=== PATIENT | female | born 1985 | race Caucasian/White ===

== ENCOUNTER 2016-09-25 18:26 | Emergency (ER) | payer OTHER ==
[2016-09-25 19:43] VITALS: BP 133/63
--- NOTE | 2016-09-25 19:51 | UC ---
Respiratory Complaint HPI - History of Current Complaint Chief Complaint: UCRespiratory Stated Complaint: UPPER RESPIRATORY Time Seen by Provider: 09/25/16 19:41 Hx Last Menstrual Period: unknown - Allergies/Home Medications Allergies/Adverse Reactions: Allergies Allergy/AdvReac Type Severity Reaction Status Date / Time Amoxicillin Allergy Severe Hives Verified 09/25/16 19:31 Codeine Allergy Severe breathing Verified 09/25/16 19:31 difficulty Latex Allergy Severe Rash Verified 09/25/16 19:31 Penicillins Allergy Severe hives, Verified 09/25/16 19:31 difficulty breathing Sulfa Drugs Allergy Severe Difficulty Verified 09/25/16 19:31 Breathing Diclofenac [From Voltaren] Allergy Hives Verified 09/25/16 19:31 Oxycodone Allergy Airway Verified 09/25/16 19:31 Obstruction Povidone Iodine Allergy See Comment Verified 09/25/16 19:31 [From Betadine] Levofloxacin [From Levaquin] AdvReac Severe Agitation Verified 09/25/16 19:31 Sumatriptan [From Imitrex] AdvReac Severe worsens Verified 09/25/16 19:31 migraine Fexofenadine [From Carina] AdvReac Headache Verified 09/25/16 19:31 Loratadine [From Claritin] AdvReac Headache Verified 09/25/16 19:31 Montelukast [From Singulair] AdvReac Headache Verified 09/25/16 19:31 NSAIDs AdvReac Headache Verified 09/25/16 19:31 Eggplant Allergy See Comment Uncoded 09/25/16 19:31 [place]el[place] Allergy Difficulty Uncoded 09/25/16 19:31 Breathing lion beans Allergy Unknown Uncoded 09/25/16 19:31 Reaction Details seafood AdvReac Severe Vomiting Uncoded 09/25/16 19:31 PMH/Surg Hx/FS Hx/Imm Hx Endocrine History Of: Reports: Diabetes - diagnosis Denies: Thyroid Disease Cardiovascular History Of: Reports: Cardiac Disorders - murmur, Hypertension Denies: Pacemaker/ICD Respiratory History Of: Reports: Asthma Denies: COPD GI/ History Of: Reports: Ulcer - hx Neurological History Of: Reports: Migraine - Surgical History Surgical History: Yes Surgery Procedure, Year, and Place: wisdom teeth extraction 2004, left wrist repair 2006. 2 endoscopy x2, hysteroscopy 2013; D&C w/ biopsy x 2. tooth extraction-2016 - Family History Known Family History: Positive: Hypertension, Diabetes Negative: Blood Disorder - Social History Alcohol Use: Rare Alcohol Amount: Vodka, wine coolers 2 x per year Substance Use Type: None Smoking Status (MU): Never Smoked Tobacco Household Exposure Type: Cigarettes - Immunization History Most Recent Influenza Vaccination: no Physical Exam Vital Signs: Initial Vital Signs Temp 97.2 F 09/25/16 19:36 Pulse 89 09/25/16 19:36 Resp 22 09/25/16 19:36 BP 133/63 09/25/16 19:36 Pulse Ox 100 09/25/16 19:36 UC Diagnostic Evaluation - Laboratory O2 Sat by Pulse Oximetry: 100
--- NOTE | 2016-09-25 20:03 | UC ---
Respiratory Complaint HPI - HPI Summary HPI Summary: sinus congestion, cough, yellow sputum for several days. Has allergies, so hard to tell when it's allergies or URI. Mother is also sick with sxs that preceded pt's and they live together. Multiple med allergies noted and pt states last time she was given emycin and she tolerated it fine when she took it with food and feels like it has worked the best for her. No fever. - History of Current Complaint Chief Complaint: UCRespiratory Stated Complaint: UPPER RESPIRATORY Time Seen by Provider: 09/25/16 19:41 Hx Obtained From: Patient Hx Last Menstrual Period: unknown, PCOS and mirena, did neg Pg test 1 week ago ?: No Onset/Duration: Gradual Onset, Lasting Days, Still Present Timing: Constant Severity Initially: Moderate Severity Currently: Moderate Pain Intensity: 3 Pain Scale Used: 0-10 Numeric Character: Cough: Productive - yellow Aggravating Factors: Nothing Alleviating Factors: Nothing Associated Signs And Symptoms: Positive: URI, Nasal Congestion, Sinus Discomfort - Risk Factors Pulmonary Embolism Risk Factors: Negative Cardiac Risk Factors: Negative Pseudomonas Risk Factors: Negative Tuberculosis Risk Factors: Negative - Allergies/Home Medications Allergies/Adverse Reactions: Allergies Allergy/AdvReac Type Severity Reaction Status Date / Time Amoxicillin Allergy Severe Hives Verified 09/25/16 19:31 Codeine Allergy Severe breathing Verified 09/25/16 19:31 difficulty Latex Allergy Severe Rash Verified 09/25/16 19:31 Penicillins Allergy Severe hives, Verified 09/25/16 19:31 difficulty breathing Sulfa Drugs Allergy Severe Difficulty Verified 09/25/16 19:31 Breathing Diclofenac [From Voltaren] Allergy Hives Verified 09/25/16 19:31 Oxycodone Allergy Airway Verified 09/25/16 19:31 Obstruction Povidone Iodine Allergy See Comment Verified 09/25/16 19:31 [From Betadine] Levofloxacin [From Levaquin] AdvReac Severe Agitation Verified 09/25/16 19:31 Sumatriptan [From Imitrex] AdvReac Severe worsens Verified 09/25/16 19:31 migraine Fexofenadine [From Carina] AdvReac Headache Verified 09/25/16 19:31 Loratadine [From Claritin] AdvReac Headache Verified 09/25/16 19:31 Montelukast [From Singulair] AdvReac Headache Verified 09/25/16 19:31 NSAIDs AdvReac Headache Verified 09/25/16 19:31 Eggplant Allergy See Comment Uncoded 09/25/16 19:31 [place] Allergy Difficulty Uncoded 09/25/16 19:31 Breathing lion beans Allergy Unknown Uncoded 09/25/16 19:31 Reaction Details seafood AdvReac Severe Vomiting Uncoded 09/25/16 19:31 PMH/Surg Hx/FS Hx/Imm Hx Endocrine History Of: Reports: Diabetes Denies: Thyroid Disease Cardiovascular History Of: Reports: Cardiac Disorders - murmur, Hypertension Denies: Pacemaker/ICD Respiratory History Of: Reports: Asthma Denies: COPD GI/ History Of: Reports: Ulcer Neurological History Of: Reports: Migraine - Surgical History Surgical History: Yes Surgery Procedure, Year, and Place: wisdom teeth extraction 2004, left wrist repair 2005. 2 endoscopy x2, hysteroscopy 2013; D&C w/ biopsy x 2. tooth extraction-2016 - Family History Known Family History: Positive: Hypertension, Diabetes Negative: Blood Disorder - Social History Lives: With Family Alcohol Use: Rare Alcohol Amount: Vodka, wine coolers 2 x per year Substance Use Type: None Smoking Status (MU): Never Smoked Tobacco Household Exposure Type: Cigarettes - Immunization History Most Recent Influenza Vaccination: no Review of Systems Constitutional: Negative Skin: Negative Eyes: Negative ENT: Nasal Discharge, Other - sinus pressure Respiratory: Cough Cardiovascular: Negative Gastrointestinal: Negative Genitourinary: Negative Motor: Negative Neurovascular: Negative Musculoskeletal: Negative Neurological: Negative Psychological: Negative All Other Systems Reviewed And Are Negative: Yes Physical Exam Triage Information Reviewed: Yes Appearance: No Pain Distress, Ill-Appearing, Obese Vital Signs: Initial Vital Signs Temp 97.2 F 09/25/16 19:36 Pulse 89 09/25/16 19:36 Resp 22 09/25/16 19:36 BP 133/63 09/25/16 19:36 Pulse Ox 100 09/25/16 19:36 Vital Signs Reviewed: Yes Eyes: Positive: Conjunctiva Clear ENT: Positive: Hearing grossly normal, Pharyngeal erythema, TMs normal, Tonsillar swelling, Other: - sinus tenderness and turbinate swelling. Negative : Tonsillar exudate Neck: Positive: Supple, Nontender, No Lymphadenopathy Respiratory: Positive: Lungs clear, Normal breath sounds, No respiratory distress Cardiovascular: Positive: RRR, No Murmur, Pulses Normal, Brisk Capillary Refill Musculoskeletal: Positive: Strength Intact, ROM Intact Neurological: Positive: Alert, Muscle Tone Normal Psychological Exam: Normal Skin Exam: Normal UC Diagnostic Evaluation - Laboratory O2 Sat by Pulse Oximetry: 100 Respiratory Course/Dx - Differential Dx/Diagnosis Differential Diagnosis/HQI/PQRI: Bronchitis, Lower Resp Infection, Sinusitis Provider Diagnoses: sinusitis Discharge - Discharge Plan Condition: Stable Disposition: HOME Prescriptions: Erythromycin TAB* 500 mg PO QID #40 tab Patient Education Materials: Sinusitis (ED) Referrals: Marco Young MD [Primary Care Provider] -
== END 2016-09-25 20:24 | disposition home or self-care (01) ==
LOC: UCCORT 18:26
DX: J32.9 Chronic sinusitis, unspecified (principal); E66.9 Obesity, unspecified; Z68.45 Body mass index [BMI] 70 or greater, adult; Z77.22 Contact with and (suspected) exposure to environmental tobacco smoke (acute) (chronic); Z88.0 Allergy status to penicillin; Z88.2 Allergy status to sulfonamides; Z88.5 Allergy status to narcotic agent; Z88.8 Allergy status to other drugs, medicaments and biological substances; Z88.1 Allergy status to other antibiotic agents; Z88.6 Allergy status to analgesic agent; Z91.040 Latex allergy status; Z91.013 Allergy to seafood; Z91.018 Allergy to other foods
CPT/HCPCS: 99212; G0463

== ENCOUNTER 2016-11-03 16:33 | Emergency (ER) | payer OTHER ==
[2016-11-03 16:51] VITALS: BP 122/56
--- NOTE | 2016-11-03 17:19 | UC ---
Lower Extremity/Ankle HPI - HPI Summary HPI Summary: 1) Dropped 2L bottle of soda on R distal foot and toes 3 days ago. Minimal bruising, able to walk, still painful. 2) L ankle pain for the last 5 weeks since she twisted it on stairs while helping injured friend into a house. Reports 3 separate twists in about 30 seconds. Has continued to be painful, mainly on medial aspect. 3) L wrist pain on radial and ulnar aspects starting 5 days ago with lifting up heavy 2L bottle. States there were 5 audible "pops" when she did it. Has seen Dr. Rankin for carpal tunnel syndrome, is planning to do surgery this spring for this. - History of Current Complaint Chief Complaint: UCUpperExtremity Stated Complaint: LEFT THUMB/WRIST/LEFT ANKLE/RIGHT FOOT Time Seen by Provider: 11/03/16 16:58 Hx Obtained From: Patient Hx Last Menstrual Period: unknown, PCOS and mirena, did neg Pg test 1 week ago ?: No Onset/Duration: Gradual Onset, Lasting Weeks Severity Initially: Mild Aggravating Factor(s): Standing, Ambulation Alleviating Factor(s): Rest Able to Bear Weight: Yes - Allergies/Home Medications Allergies/Adverse Reactions: Allergies Allergy/AdvReac Type Severity Reaction Status Date / Time Amoxicillin Allergy Severe Hives Verified 11/03/16 16:51 Codeine Allergy Severe breathing Verified 11/03/16 16:51 difficulty Latex Allergy Severe Rash Verified 11/03/16 16:51 Penicillins Allergy Severe hives, Verified 11/03/16 16:51 difficulty breathing Sulfa Drugs Allergy Severe Difficulty Verified 11/03/16 16:51 Breathing Diclofenac [From Voltaren] Allergy Hives Verified 11/03/16 16:51 Oxycodone Allergy Airway Verified 11/03/16 16:51 Obstruction Povidone Iodine Allergy See Comment Verified 11/03/16 16:51 [From Betadine] Levofloxacin [From Levaquin] AdvReac Severe Agitation Verified 11/03/16 16:51 Sumatriptan [From Imitrex] AdvReac Severe worsens Verified 11/03/16 16:51 migraine Fexofenadine [From Carina] AdvReac Headache Verified 11/03/16 16:51 Loratadine [From Claritin] AdvReac Headache Verified 11/03/16 16:51 Montelukast [From Singulair] AdvReac Headache Verified 11/03/16 16:51 NSAIDs AdvReac Headache Verified 11/03/16 16:51 Eggplant Allergy See Comment Uncoded 11/03/16 16:51 [place] Allergy Difficulty Uncoded 11/03/16 16:51 Breathing lion beans Allergy Unknown Uncoded 11/03/16 16:51 Reaction Details seafood AdvReac Severe Vomiting Uncoded 11/03/16 16:51 PMH/Surg Hx/FS Hx/Imm Hx Endocrine History Of: Reports: Diabetes Denies: Thyroid Disease Cardiovascular History Of: Reports: Cardiac Disorders - murmur, Hypertension Denies: Pacemaker/ICD Respiratory History Of: Reports: Asthma Denies: COPD GI/ History Of: Reports: Ulcer Neurological History Of: Reports: Migraine - Surgical History Surgical History: Yes Surgery Procedure, Year, and Place: wisdom teeth extraction 2004, left wrist repair 2005. 2 endoscopy x2, hysteroscopy 2013; D&C w/ biopsy x 2. tooth extraction-2016 - Family History Known Family History: Positive: Hypertension, Diabetes Negative: Blood Disorder - Social History Alcohol Use: Rare Alcohol Amount: Vodka, wine coolers 2 x per year Substance Use Type: None Smoking Status (MU): Never Smoked Tobacco Household Exposure Type: Cigarettes - Immunization History Most Recent Influenza Vaccination: no Review of Systems Constitutional: Negative Skin: Negative Eyes: Negative ENT: Negative Respiratory: Negative Cardiovascular: Negative Gastrointestinal: Negative Genitourinary: Negative Motor: Negative Neurovascular: Negative Musculoskeletal: Arthralgia, Myalgia Neurological: Negative Psychological: Negative All Other Systems Reviewed And Are Negative: Yes Physical Exam Triage Information Reviewed: Yes Appearance: Well-Appearing, No Pain Distress, Obese Vital Signs: Initial Vital Signs Temp 98.6 F 11/03/16 16:44 Pulse 102 11/03/16 16:44 Resp 18 11/03/16 16:44 BP 122/56 11/03/16 16:44 Pulse Ox 99 11/03/16 16:44 Vital Signs Reviewed: Yes Eye Exam: Normal Eyes: Positive: Conjunctiva Clear ENT Exam: Normal ENT: Positive: Normal ENT inspection, Hearing grossly normal, Pharynx normal, TMs normal Dental Exam: Normal Neck exam: Normal Neck: Positive: Supple, Nontender, No Lymphadenopathy Respiratory Exam: Normal Respiratory: Positive: Chest non-tender, Lungs clear, Normal breath sounds, No respiratory distress, No accessory muscle use Cardiovascular: Positive: No Murmur, Tachycardia Musculoskeletal Exam: Other - no bony tenderness on R foot or L ankle Musculoskeletal: Positive: ROM Intact, Other: - pain over L thumb extensor tendon and L ulnar wrist Neurological Exam: Normal Neurological: Positive: Alert Psychological Exam: Normal Skin Exam: Normal Lower Extremity Course/Dx - Differential Dx/Diagnosis Provider Diagnoses: 1) R foot crush injury. 2) L ankle sprain. 3) L wrist tendon strain Discharge - Discharge Plan Condition: Stable Disposition: HOME Patient Education Materials: Ankle Sprain (ED), Wrist Sprain (ED), Crush Injury (ED) Referrals: Marco Young MD [Primary Care Provider] - Additional Instructions: Please follow up with Dr. Rankin for your wrist. Keep wearing the splint if you have pain. The right foot should gradually feel better on its own without any intervention Please arrange to see a physical therapist about your ongoing ankle pain.
--- NOTE | 2016-11-03 17:44 | RAD ---
Indication: Right Foot injury. 3 views of the right foot demonstrates no definite fracture. Posterior and inferior calcaneal spur is noted. No other bone or joint abnormality noted. IMPRESSION: Inferior and posterior calcaneal spur. No fracture is identified.
--- NOTE | 2016-11-03 17:47 | RAD ---
Left ankle injury. 3 views of left ankle demonstrate soft tissue swelling. Ankle mortise is intact. No fracture is identified. IMPRESSION: Soft tissue swelling without definite evidence of fracture.
== END 2016-11-03 17:48 | disposition home or self-care (01) ==
LOC: UCCORT 16:33
DX: S97.81XA Crushing injury of right foot, initial encounter (principal); S93.402A Sprain of unspecified ligament of left ankle, initial encounter; S66.912A Strain of unspecified muscle, fascia and tendon at wrist and hand level, left hand, initial encounter; W20.8XXA Other cause of strike by thrown, projected or falling object, initial encounter; X50.1XXA Overexertion from prolonged static or awkward postures, initial encounter; Y93.9 Activity, unspecified; Y92.9 Unspecified place or not applicable; Z77.22 Contact with and (suspected) exposure to environmental tobacco smoke (acute) (chronic); Z88.1 Allergy status to other antibiotic agents; Z88.5 Allergy status to narcotic agent; Z88.6 Allergy status to analgesic agent; Z88.0 Allergy status to penicillin; Z88.2 Allergy status to sulfonamides; Z88.8 Allergy status to other drugs, medicaments and biological substances; E66.9 Obesity, unspecified
CPT/HCPCS: 99212; G0463

== ENCOUNTER 2016-11-28 15:07 | Emergency (ER) | payer OTHER ==
[2016-11-28 16:13] VITALS: BP 115/69
--- NOTE | 2016-11-28 16:23 | UC ---
Respiratory Complaint HPI - HPI Summary HPI Summary: COUGH X 5 DAYS + CHEST CONGESTION, NASAL CONGESTION , PND NO FEVER, NO CHILLS - History of Current Complaint Chief Complaint: UCRespiratory Stated Complaint: COUGH/CONGESTION Time Seen by Provider: 11/28/16 16:14 Hx Obtained From: Patient Hx Last Menstrual Period: mirena ?: No Onset/Duration: Gradual Onset, Lasting Days - 5, Still Present Timing: Constant Severity Initially: Moderate Severity Currently: Moderate Character: Cough: Nonproductive Aggravating Factors: Exertion, Deep Breaths Alleviating Factors: Nothing Associated Signs And Symptoms: Positive: Wheezing, URI, Nasal Congestion. Negative: Dyspnea, Fever, Chills, Pleuritic Chest Pain, Hemoptysis, Dizziness, Calf Pain, Calf Swelling, Edema - Allergies/Home Medications Allergies/Adverse Reactions: Allergies Allergy/AdvReac Type Severity Reaction Status Date / Time Amoxicillin Allergy Severe Hives Verified 11/28/16 16:13 Codeine Allergy Severe breathing Verified 11/28/16 16:13 difficulty Latex Allergy Severe Rash Verified 11/28/16 16:13 Penicillins Allergy Severe hives, Verified 11/28/16 16:13 difficulty breathing Sulfa Drugs Allergy Severe Difficulty Verified 11/28/16 16:13 Breathing Diclofenac [From Voltaren] Allergy Hives Verified 11/28/16 16:13 Oxycodone Allergy Airway Verified 11/28/16 16:13 Obstruction Povidone Iodine Allergy See Comment Verified 11/28/16 16:13 [From Betadine] Levofloxacin [From Levaquin] AdvReac Severe Agitation Verified 11/28/16 16:13 Sumatriptan [From Imitrex] AdvReac Severe worsens Verified 11/28/16 16:13 migraine Fexofenadine [From Carina] AdvReac Headache Verified 11/28/16 16:13 Loratadine [From Claritin] AdvReac Headache Verified 11/28/16 16:13 Montelukast [From Singulair] AdvReac Headache Verified 11/28/16 16:13 NSAIDs AdvReac Headache Verified 11/28/16 16:13 Eggplant Allergy See Comment Uncoded 11/28/16 16:13 [place] Allergy Difficulty Uncoded 11/28/16 16:13 Breathing lion beans Allergy Unknown Uncoded 11/28/16 16:13 Reaction Details seafood AdvReac Severe Vomiting Uncoded 11/28/16 16:13 PMH/Surg Hx/FS Hx/Imm Hx Endocrine History Of: Reports: Diabetes Denies: Thyroid Disease Cardiovascular History Of: Reports: Hypertension Denies: Cardiac Disorders, Pacemaker/ICD Respiratory History Of: Reports: Asthma Denies: COPD GI/ History Of: Reports: Ulcer Neurological History Of: Reports: Migraine - Surgical History Surgical History: Yes Surgery Procedure, Year, and Place: wisdom teeth extraction 2004, left wrist repair 2006. 2 endoscopy x2, hysteroscopy 2013; D&C w/ biopsy x 2. tooth extraction-2016 - Family History Known Family History: Positive: Hypertension, Diabetes Negative: Blood Disorder - Social History Alcohol Use: Rare Alcohol Amount: Vodka, wine coolers 2 x per year Substance Use Type: None Smoking Status (MU): Never Smoked Tobacco Household Exposure Type: Cigarettes - Immunization History Most Recent Influenza Vaccination: no Review of Systems Constitutional: Negative Skin: Negative Eyes: Negative ENT: Nasal Discharge Respiratory: Cough Cardiovascular: Negative Gastrointestinal: Negative Neurological: Headache All Other Systems Reviewed And Are Negative: Yes Physical Exam Triage Information Reviewed: Yes Appearance: Obese Vital Signs: Initial Vital Signs Temp 97.7 F 11/28/16 16:09 Pulse 113 11/28/16 16:09 Resp 16 11/28/16 16:09 BP 115/69 11/28/16 16:09 Pulse Ox 98 11/28/16 16:09 Vital Signs Reviewed: Yes Eyes: Positive: Conjunctiva Clear ENT: Positive: Normal ENT inspection, Hearing grossly normal, Pharynx normal Neck: Positive: Supple, Nontender, No Lymphadenopathy Respiratory: Positive: Chest non-tender, Lungs clear, Normal breath sounds Cardiovascular: Positive: No Murmur, Tachycardia Skin Exam: Normal UC Diagnostic Evaluation - Laboratory O2 Sat by Pulse Oximetry: 98 Respiratory Course/Dx - Differential Dx/Diagnosis Provider Diagnoses: VIRAL BRONCHITIS Discharge - Discharge Plan Condition: Stable Disposition: HOME Prescriptions: Benzonatate CAP* [Tessalon 100 MG CAP*] 100 mg PO TID PRN #21 cap PRN Reason: Cough Patient Education Materials: Acute Bronchitis (ED) Referrals: Marco Young MD [Primary Care Provider] - 7 Days Additional Instructions: VIRAL BRONCHITIS NO NEED FOR ANTIBIOTICS CONT. WITH REST, INCREASE FLUID, TAKE TYLENOL NEEDED FOR PAIN OR FEVER
== END 2016-11-28 16:31 | disposition home or self-care (01) ==
LOC: UCCORT 15:07
DX: J20.8 Acute bronchitis due to other specified organisms (principal); E11.9 Type 2 diabetes mellitus without complications; I10 Essential (primary) hypertension; G43.909 Migraine, unspecified, not intractable, without status migrainosus; Z88.1 Allergy status to other antibiotic agents; Z88.6 Allergy status to analgesic agent; Z88.0 Allergy status to penicillin; Z88.2 Allergy status to sulfonamides; Z77.22 Contact with and (suspected) exposure to environmental tobacco smoke (acute) (chronic)
CPT/HCPCS: 99212; G0463

== ENCOUNTER 2016-12-09 17:00 | Emergency (ER) | payer OTHER ==
[2016-12-09 17:49] VITALS: BP 115/49
--- NOTE | 2016-12-09 17:53 | UC ---
Respiratory Complaint HPI - HPI Summary HPI Summary: dry cough and wheezing for the past few weeks. - History of Current Complaint Chief Complaint: UCRespiratory Stated Complaint: RE CHECK COUGH-SEEN 11/27 Time Seen by Provider: 12/09/16 17:22 Hx Obtained From: Patient Hx Last Menstrual Period: 11/2015 ?: No Onset/Duration: Sudden Onset, Lasting Weeks Timing: Constant Severity Initially: Moderate Severity Currently: Moderate Character: Cough: Nonproductive Aggravating Factors: Exertion, Deep Breaths, Recumbent Position Alleviating Factors: Nothing Associated Signs And Symptoms: Positive: Wheezing, URI - Risk Factors Pulmonary Embolism Risk Factors: Negative Cardiac Risk Factors: Negative Pseudomonas Risk Factors: Negative - Allergies/Home Medications Allergies/Adverse Reactions: Allergies Allergy/AdvReac Type Severity Reaction Status Date / Time Amoxicillin Allergy Severe Hives Verified 12/09/16 17:34 Codeine Allergy Severe breathing Verified 12/09/16 17:34 difficulty Latex Allergy Severe Rash Verified 12/09/16 17:34 Penicillins Allergy Severe hives, Verified 12/09/16 17:34 difficulty breathing Sulfa Drugs Allergy Severe Difficulty Verified 12/09/16 17:34 Breathing Diclofenac [From Voltaren] Allergy Hives Verified 12/09/16 17:34 Oxycodone Allergy Airway Verified 12/09/16 17:34 Obstruction Povidone Iodine Allergy See Comment Verified 12/09/16 17:34 [From Betadine] Levofloxacin [From Levaquin] AdvReac Severe Agitation Verified 12/09/16 17:34 Sumatriptan [From Imitrex] AdvReac Severe worsens Verified 12/09/16 17:34 migraine Fexofenadine [From Carina] AdvReac Headache Verified 12/09/16 17:34 Loratadine [From Claritin] AdvReac Headache Verified 12/09/16 17:34 Montelukast [From Singulair] AdvReac Headache Verified 12/09/16 17:34 NSAIDs AdvReac Headache Verified 12/09/16 17:34 Eggplant Allergy See Comment Uncoded 12/09/16 17:34 environmental Allergy Sneezing Uncoded 12/09/16 17:34 [place] Allergy Difficulty Uncoded 12/09/16 17:34 Breathing lion beans Allergy Unknown Uncoded 12/09/16 17:34 Reaction Details seafood AdvReac Severe Vomiting Uncoded 12/09/16 17:34 PMH/Surg Hx/FS Hx/Imm Hx Previously Healthy: Yes Endocrine History Of: Reports: Diabetes Denies: Thyroid Disease Cardiovascular History Of: Reports: Hypertension Denies: Cardiac Disorders, Pacemaker/ICD Respiratory History Of: Reports: Asthma Denies: COPD GI/ History Of: Reports: Ulcer - duodenum Neurological History Of: Reports: Migraine - Surgical History Surgical History: Yes Surgery Procedure, Year, and Place: wisdom teeth extraction 2004, left wrist repair 2006. 2 endoscopy x2, hysteroscopy 2013; D&C w/ biopsy x 2. tooth extraction-2016 - Family History Known Family History: Positive: Hypertension, Diabetes Negative: Blood Disorder - Social History Alcohol Use: Rare Alcohol Amount: Vodka, wine coolers 2 x per year Substance Use Type: None Smoking Status (MU): Never Smoked Tobacco Household Exposure Type: Cigarettes - Immunization History Most Recent Influenza Vaccination: no Review of Systems Constitutional: Negative Skin: Negative Eyes: Negative ENT: Sore Throat Respiratory: Cough Cardiovascular: Negative Gastrointestinal: Negative Genitourinary: Negative Motor: Negative Neurovascular: Negative Musculoskeletal: Negative Neurological: Negative Psychological: Negative All Other Systems Reviewed And Are Negative: Yes Physical Exam Triage Information Reviewed: Yes Appearance: Well-Appearing, Pain Distress, Obese Vital Signs: Initial Vital Signs Temp 97.9 F 12/09/16 17:03 Pulse 115 12/09/16 17:03 Resp 20 12/09/16 17:03 BP 115/49 12/09/16 17:03 Pulse Ox 98 12/09/16 17:03 Vital Signs Reviewed: Yes Eye Exam: Normal Eyes: Positive: Conjunctiva Clear ENT: Positive: Pharyngeal erythema, TMs normal Dental Exam: Normal Neck exam: Normal Neck: Positive: Supple, Nontender, No Lymphadenopathy Respiratory Exam: Normal Respiratory: Positive: Chest non-tender, Lungs clear, Normal breath sounds Cardiovascular Exam: Normal Cardiovascular: Positive: No Murmur, Pulses Normal, Tachycardia Abdominal Exam: Normal Abdomen Description: Positive: Nontender, No Organomegaly, Soft Bowel Sounds: Positive: Present Musculoskeletal Exam: Normal Musculoskeletal: Positive: Strength Intact, ROM Intact, No Edema Neurological Exam: Normal Neurological: Positive: Alert, Muscle Tone Normal Psychological Exam: Normal Skin Exam: Normal UC Diagnostic Evaluation - Laboratory O2 Sat by Pulse Oximetry: 98 Respiratory Course/Dx - Course Course Of Treatment: hx obtained, exam performed, meds reviewed, treated for bronchospasm, patient is on lisinopril, BP is low, but do not have a large enough cuff to get an accurate BP, she is denies any dizzyness, CP, SOB. patient is drinking alot of water, reports 6-7 bottles a day - Differential Dx/Diagnosis Differential Diagnosis/HQI/PQRI: Bronchitis, Laryngitis, Sinusitis Provider Diagnoses: bronchospasm Discharge - Discharge Plan Condition: Stable Disposition: HOME Prescriptions: Benzonatate CAP* [Tessalon 100 MG CAP*] 100 mg PO TID PRN #21 cap PRN Reason: Cough predniSONE TAB* [Deltasone TAB*] 40 mg PO DAILY #14 tab Patient Education Materials: Bronchospasm (ED) Referrals: Marco Young MD [Primary Care Provider] - Additional Instructions: 1. take the medication as prescribed. 2. If cough persists please follow up with Dr Leyva for possible reaction to lisinopril. 3. COntinue increased fluid intake and get plenty of rest.
== END 2016-12-09 17:59 | disposition home or self-care (01) ==
LOC: UCCORT 17:00
DX: J98.01 Acute bronchospasm (principal); E11.9 Type 2 diabetes mellitus without complications; I10 Essential (primary) hypertension; G43.909 Migraine, unspecified, not intractable, without status migrainosus; E66.9 Obesity, unspecified; Z88.6 Allergy status to analgesic agent; Z88.1 Allergy status to other antibiotic agents; Z88.5 Allergy status to narcotic agent; Z88.0 Allergy status to penicillin; Z88.2 Allergy status to sulfonamides; Z90.710 Acquired absence of both cervix and uterus; Z77.22 Contact with and (suspected) exposure to environmental tobacco smoke (acute) (chronic)
CPT/HCPCS: 99212; G0463

== ENCOUNTER 2017-02-22 11:43 | Emergency (ER) | payer OTHER ==
--- NOTE | 2017-02-22 14:24 | UC ---
Lower Extremity/Ankle HPI - HPI Summary HPI Summary: pain in left heel worse in the morning and worse after walking in "flip-flops" has been going on for 1 month - History of Current Complaint Chief Complaint: UCLowerExtremity Stated Complaint: HEEL INJURY Time Seen by Provider: 02/22/17 14:10 Hx Obtained From: Patient Hx Last Menstrual Period: mirana ?: No Onset/Duration: Gradual Onset, Lasting Weeks - 4, Still Present Severity Initially: Moderate Severity Currently: Moderate Pain Intensity: 6 Pain Scale Used: 0-10 Numeric Aggravating Factor(s): Standing, Ambulation Alleviating Factor(s): Nothing Able to Bear Weight: Yes - Allergies/Home Medications Allergies/Adverse Reactions: Allergies Allergy/AdvReac Type Severity Reaction Status Date / Time Amoxicillin Allergy Severe Hives Verified 12/22/16 13:24 Codeine Allergy Severe breathing Verified 12/22/16 13:24 difficulty Latex Allergy Severe Rash Verified 12/22/16 13:24 Penicillins Allergy Severe hives, Verified 12/22/16 13:24 difficulty breathing Sulfa Drugs Allergy Severe Difficulty Verified 12/22/16 13:24 Breathing Diclofenac [From Voltaren] Allergy Hives Verified 12/22/16 13:24 Oxycodone Allergy Airway Verified 12/22/16 13:24 Obstruction Povidone Iodine Allergy See Comment Verified 12/22/16 13:24 [From Betadine] Levofloxacin [From Levaquin] AdvReac Severe Agitation Verified 12/22/16 13:24 Sumatriptan [From Imitrex] AdvReac Severe worsens Verified 12/22/16 13:24 migraine Fexofenadine [From Carina] AdvReac Headache Verified 12/22/16 13:24 Loratadine [From Claritin] AdvReac Headache Verified 12/22/16 13:24 Montelukast [From Singulair] AdvReac Headache Verified 12/22/16 13:24 NSAIDs AdvReac Headache Verified 12/22/16 13:24 Eggplant Allergy See Comment Uncoded 12/22/16 13:24 environmental Allergy Sneezing Uncoded 12/22/16 13:24 Hazelnut Allergy Difficulty Uncoded 12/22/16 13:24 Breathing lion beans Allergy Unknown Uncoded 12/22/16 13:24 Reaction Details seafood AdvReac Severe Vomiting Uncoded 12/22/16 13:24 PMH/Surg Hx/FS Hx/Imm Hx Previously Healthy: No - Chronic pain Cardiovascular History: Hypertension Respiratory History: Asthma - Surgical History Surgical History: Yes Surgery Procedure, Year, and Place: wisdom teeth extraction 2004, left wrist repair 2005. 2 endoscopy x2, hysteroscopy 2013; D&C w/ biopsy x 2. tooth extraction-2016. breast surgery papiloma removal october 2015 - Family History Known Family History: Positive: Hypertension, Diabetes Negative: Blood Disorder - Social History Occupation: Unemployed Lives: With Family Alcohol Use: Rare Alcohol Amount: Vodka, wine coolers 2 x per year Substance Use Type: None Smoking Status (MU): Never Smoked Tobacco Household Exposure Type: Cigarettes - Immunization History Most Recent Influenza Vaccination: no Review of Systems Constitutional: Negative Skin: Negative Eyes: Negative ENT: Negative Respiratory: Negative Cardiovascular: Negative Gastrointestinal: Negative Genitourinary: Negative Motor: Negative Neurovascular: Negative Musculoskeletal: Arthralgia - plantar surface left foot Neurological: Negative Psychological: Negative All Other Systems Reviewed And Are Negative: Yes Physical Exam Triage Information Reviewed: Yes Appearance: Well-Appearing, Well-Nourished, Obese Vital Signs: Initial Vital Signs Temp 97.1 F 02/22/17 12:16 Pulse 94 02/22/17 12:16 Resp 18 02/22/17 12:16 BP 144/73 02/22/17 12:16 Pulse Ox 98 02/22/17 12:16 Eye Exam: Normal Eyes: Positive: Conjunctiva Clear ENT Exam: Normal ENT: Positive: Normal ENT inspection, Hearing grossly normal. Negative: Nasal congestion, Nasal drainage, Trismus, Muffled/hoarse voice Dental Exam: Normal Neck exam: Normal Neck: Positive: Supple, Nontender Respiratory Exam: Normal Respiratory: Positive: Chest non-tender, No respiratory distress, No accessory muscle use Cardiovascular Exam: Normal Cardiovascular: Positive: RRR, Pulses Normal, Brisk Capillary Refill Musculoskeletal Exam: Normal Musculoskeletal: Positive: Strength Intact, ROM Intact, No Edema Neurological Exam: Normal Neurological: Positive: Alert, Muscle Tone Normal Psychological Exam: Normal Skin Exam: Normal Lower Extremity Course/Dx - Course Course Of Treatment: plantar fac. exercises, nsaids, follow with podiatry, shoe inserts - Differential Dx/Diagnosis Differential Diagnosis/HQI/PQRI: Contusion, Sprain, Strain, Tendonitis Provider Diagnoses: L foot plantar facitis Discharge - Discharge Plan Condition: Stable Disposition: HOME Patient Education Materials: Plantar Fasciitis Exercises (GEN), Plantar Fasciitis (ED) Referrals: Jin Purcell DPM [Doctor of Podiatric Medicine] - As Soon As Possible Antonia Boss DPM [Doctor of Podiatric Medicine] - As Soon As Possible Chava Cesar DPM [Doctor of Podiatric Medicine] - As Soon As Possible
[2017-02-22 14:33] VITALS: BP 122/86
== END 2017-02-22 14:39 | disposition home or self-care (01) ==
LOC: UCEAST 11:43
DX: S99.929A Unspecified injury of unspecified foot, initial encounter (principal); Z88.0 Allergy status to penicillin
CPT/HCPCS: 99212; G0463

== ENCOUNTER 2017-02-24 17:21 | Emergency (ER) | payer OTHER ==
[2017-02-24 18:04] VITALS: BP 134/63
--- NOTE | 2017-02-24 19:28 | UC ---
Hand/Wrist HPI - HPI Summary HPI Summary: pt c/o sudden onset of left wrist pain, and swelling. Denies injury. left distal radius - History Of Current Complaint Chief Complaint: UCUpperExtremity Stated Complaint: LEFT WRIST COMPLAINT Time Seen by Provider: 02/24/17 19:04 Hx Obtained From: Patient Hx Last Menstrual Period: unknown, has mirena ?: No Onset/Duration: Sudden Onset, Lasting Days, Still Present Severity Initially: Mild Severity Currently: Mild Character Of Pain: Dull Aggravating Factor(s): Movement, Other - palpation Alleviating: Nothing Associated Signs And Symptoms: Positive: Swelling Related History: Dominant Hand Right - Allergies/Home Medications Allergies/Adverse Reactions: Allergies Allergy/AdvReac Type Severity Reaction Status Date / Time Amoxicillin Allergy Severe Hives Verified 02/24/17 18:04 Codeine Allergy Severe breathing Verified 02/24/17 18:04 difficulty Latex Allergy Severe Rash Verified 02/24/17 18:04 Penicillins Allergy Severe hives, Verified 02/24/17 18:04 difficulty breathing Sulfa Drugs Allergy Severe Difficulty Verified 02/24/17 18:04 Breathing Diclofenac [From Voltaren] Allergy Hives Verified 02/24/17 18:04 Oxycodone Allergy Airway Verified 02/24/17 18:04 Obstruction Povidone Iodine Allergy See Comment Verified 02/24/17 18:04 [From Betadine] Levofloxacin [From Levaquin] AdvReac Severe Agitation Verified 02/24/17 18:04 Sumatriptan [From Imitrex] AdvReac Severe worsens Verified 02/24/17 18:04 migraine Fexofenadine [From Carina] AdvReac Headache Verified 02/24/17 18:04 Loratadine [From Claritin] AdvReac Headache Verified 02/24/17 18:04 Montelukast [From Singulair] AdvReac Headache Verified 02/24/17 18:04 NSAIDs AdvReac Headache Verified 02/24/17 18:04 Eggplant Allergy See Comment Uncoded 02/24/17 18:04 environmental Allergy Sneezing Uncoded 02/24/17 18:04 Hazelnut Allergy Difficulty Uncoded 02/24/17 18:04 Breathing lion beans Allergy Unknown Uncoded 02/24/17 18:04 Reaction Details seafood AdvReac Severe Vomiting Uncoded 02/24/17 18:04 PMH/Surg Hx/FS Hx/Imm Hx Previously Healthy: Yes - Surgical History Surgical History: Yes Surgery Procedure, Year, and Place: wisdom teeth extraction 2004, left wrist repair 2006. 2 endoscopy x2, hysteroscopy 2013; D&C w/ biopsy x 2. tooth extraction-2016. breast surgery papiloma removal october 2015 - Family History Known Family History: Positive: Hypertension, Diabetes Negative: Blood Disorder - Social History Alcohol Use: Rare Alcohol Amount: Vodka, wine coolers 2 x per year Substance Use Type: None Smoking Status (MU): Never Smoked Tobacco Household Exposure Type: Cigarettes - Immunization History Most Recent Influenza Vaccination: no Review of Systems Constitutional: Negative Skin: Negative Eyes: Negative ENT: Negative Respiratory: Negative Cardiovascular: Negative Gastrointestinal: Negative Genitourinary: Negative Motor: Negative Neurovascular: Negative Musculoskeletal: Myalgia - left wrist Neurological: Negative Psychological: Negative All Other Systems Reviewed And Are Negative: Yes Physical Exam Triage Information Reviewed: Yes Appearance: Well-Appearing Vital Signs: Initial Vital Signs Temp 97.5 F 02/24/17 17:47 Pulse 82 02/24/17 17:47 Resp 20 02/24/17 17:47 BP 134/63 02/24/17 17:47 Pulse Ox 100 02/24/17 17:47 Eye Exam: Normal Neck exam: Normal Respiratory Exam: Normal Musculoskeletal Exam: Other Musculoskeletal: Positive: ROM Intact, Other: - small tender soft "lump" left wrist distal radius Neurological Exam: Normal Psychological Exam: Normal Skin Exam: Normal Hand/Wrist Course/Dx - Differential Dx/Diagnosis Differential Diagnosis/HQI/PQRI: Gout, Sprain, Tendonitis Provider Diagnoses: tendonitis. swollen joint left wrist Discharge - Discharge Plan Condition: Stable Disposition: HOME Patient Education Materials: Arthralgia (ED), Swollen Joint (ED) Referrals: Marco Young MD [Primary Care Provider] - Matt Bernard MD [Medical Doctor] -
--- NOTE | 2017-02-24 20:28 | RAD ---
INDICATION: Painful nodules overlying the radial aspect of the left wrist COMPARISON: Left hand radiograph dated December 22, 2016 TECHNIQUE: 4 views left wrist. REPORT: The visualized bones are properly aligned and well corticated. The joint spaces are normal.There is no fracture, dislocation or other focal osseous abnormality. IMPRESSION: Normal radiograph of the left wrist. If the patient's symptoms persist, follow-up imaging is recommended.
== END 2017-02-24 19:41 | disposition home or self-care (01) ==
LOC: UCCORT 17:21
DX: M77.8 Other enthesopathies, not elsewhere classified (principal); M25.432 Effusion, left wrist
CPT/HCPCS: 99212; G0463

== ENCOUNTER 2017-05-25 10:32 | Emergency (ER) | payer OTHER ==
[2017-05-25 11:03] VITALS: BP 113/67
--- NOTE | 2017-05-25 11:21 | UC ---
Throat Pain/Nasal Axel HPI - HPI Summary HPI Summary: sore throat x 4 weeks + nasal congestion , pnd, sinus pain , cough no fever, no chills - History of Current Complaint Chief Complaint: UCRespiratory Stated Complaint: SORE THROAT Time Seen by Provider: 05/25/17 11:09 Hx Obtained From: Patient Hx Last Menstrual Period: unknown Onset/Duration: Gradual Onset, Lasting Weeks - 4, Still Present Severity: Moderate Cough: Nonproductive Associated Signs & Symptoms: Positive: Wheezing, Sinus Discomfort, Nasal Discharge. Negative: Fever, Rash - Allergies/Home Medications Allergies/Adverse Reactions: Allergies Allergy/AdvReac Type Severity Reaction Status Date / Time Amoxicillin Allergy Severe Hives Verified 05/25/17 11:02 Codeine Allergy Severe breathing Verified 05/25/17 11:02 difficulty Latex Allergy Severe Rash Verified 05/25/17 11:02 Penicillins Allergy Severe hives, Verified 05/25/17 11:02 difficulty breathing Sulfa Drugs Allergy Severe Difficulty Verified 05/25/17 11:02 Breathing Diclofenac [From Voltaren] Allergy Hives Verified 05/25/17 11:02 Oxycodone Allergy Airway Verified 05/25/17 11:02 Obstruction Povidone Iodine Allergy See Comment Verified 05/25/17 11:02 [From Betadine] Levofloxacin [From Levaquin] AdvReac Severe Agitation Verified 05/25/17 11:02 Sumatriptan [From Imitrex] AdvReac Severe worsens Verified 05/25/17 11:02 migraine Fexofenadine [From Carina] AdvReac Headache Verified 05/25/17 11:02 Loratadine [From Claritin] AdvReac Headache Verified 05/25/17 11:02 Montelukast [From Singulair] AdvReac Headache Verified 05/25/17 11:02 NSAIDs AdvReac Headache Verified 05/25/17 11:02 Eggplant Allergy See Comment Uncoded 05/25/17 11:02 environmental Allergy Sneezing Uncoded 05/25/17 11:02 [place]el[place] Allergy Difficulty Uncoded 05/25/17 11:02 Breathing lion beans Allergy Unknown Uncoded 05/25/17 11:02 Reaction Details seafood AdvReac Severe Vomiting Uncoded 05/25/17 11:02 PMH/Surg Hx/FS Hx/Imm Hx Cardiovascular History: Hypertension Respiratory History: Asthma GI/ History: Gastroesophageal Reflux - Surgical History Surgical History: Yes Surgery Procedure, Year, and Place: wisdom teeth extraction 2004, left wrist repair 2006. 2 endoscopy x2, hysteroscopy 2013; D&C w/ biopsy x 2. tooth extraction-2016. breast surgery papiloma removal october 2015 - Family History Known Family History: Positive: Hypertension, Diabetes Negative: Blood Disorder - Social History Alcohol Use: Rare Alcohol Amount: Vodka, wine coolers 2 x per year Substance Use Type: None Smoking Status (MU): Never Smoked Tobacco Household Exposure Type: Cigarettes - Immunization History Most Recent Influenza Vaccination: no Review of Systems Constitutional: Negative Skin: Negative Eyes: Negative ENT: Sore Throat, Nasal Discharge, Sinus Congestion, Sinus Pain/Tenderness Respiratory: Cough Cardiovascular: Negative Gastrointestinal: Negative Is Patient Immunocompromised?: No All Other Systems Reviewed And Are Negative: Yes Physical Exam Triage Information Reviewed: Yes Appearance: No Pain Distress, Obese Vital Signs: Initial Vital Signs Temp 98.6 F 05/25/17 10:56 Pulse 94 05/25/17 10:56 Resp 18 05/25/17 10:56 BP 113/67 05/25/17 10:56 Pulse Ox 98 05/25/17 10:56 Vital Signs Reviewed: Yes Eyes: Positive: Conjunctiva Clear ENT: Positive: Normal ENT inspection, Hearing grossly normal, Pharyngeal erythema, Nasal congestion, Nasal drainage, TMs normal. Negative: Tonsillar swelling, Tonsillar exudate Neck: Positive: Supple, Nontender, No Lymphadenopathy Respiratory: Positive: Chest non-tender, Lungs clear, Normal breath sounds Cardiovascular: Positive: RRR, No Murmur, Pulses Normal Skin Exam: Normal Throat Pain/Nasal Course/Dx - Differential Dx/Diagnosis Provider Diagnoses: sinusitis Discharge - Discharge Plan Condition: Stable Disposition: HOME Prescriptions: Azithromycin TAB* [Zithromax TAB (Z-KYLER) 250 mg #6 tabs] 2 tab PO .TODAY, THEN 1 DAILY #1 kyler Patient Education Materials: Sinusitis (ED) Referrals: Marco Young MD [Primary Care Provider] - If Needed Additional Instructions: use Flonase OTC nasal spray daily
== END 2017-05-25 11:40 | disposition home or self-care (01) ==
LOC: UCCORT 10:32
DX: J32.9 Chronic sinusitis, unspecified (principal); I10 Essential (primary) hypertension; Z88.1 Allergy status to other antibiotic agents; Z88.0 Allergy status to penicillin; Z88.2 Allergy status to sulfonamides; Z88.6 Allergy status to analgesic agent; Z88.8 Allergy status to other drugs, medicaments and biological substances; Z91.040 Latex allergy status; Z91.018 Allergy to other foods; Z91.013 Allergy to seafood
CPT/HCPCS: 99212; G0463

== ENCOUNTER 2017-05-31 16:43 | Emergency (ER) | payer OTHER ==
[2017-05-31 17:15] VITALS: BP 133/78
--- NOTE | 2017-05-31 17:47 | UC ---
Respiratory Complaint HPI - HPI Summary HPI Summary: Continued cough and fatigue just finished last dose of antibiotic, no fevers using albuterol 4 times a day - History of Current Complaint Chief Complaint: UCGeneralIllness Stated Complaint: FEVER,SORE THROAT,COUGH Time Seen by Provider: 05/31/17 17:24 Hx Obtained From: Patient Hx Last Menstrual Period: MIRENA ?: No Onset/Duration: Gradual Onset, Lasting Days, Still Present Timing: Constant Severity Initially: Mild Severity Currently: Mild Pain Intensity: 3 Pain Scale Used: 0-10 Numeric Character: Cough: Nonproductive Alleviating Factors: Bronchodilator Associated Signs And Symptoms: Positive: URI, Nasal Congestion - Allergies/Home Medications Allergies/Adverse Reactions: Allergies Allergy/AdvReac Type Severity Reaction Status Date / Time Amoxicillin Allergy Severe Hives Verified 05/31/17 17:18 Codeine Allergy Severe breathing Verified 05/31/17 17:18 difficulty Latex Allergy Severe Rash Verified 05/31/17 17:18 Penicillins Allergy Severe hives, Verified 05/31/17 17:18 difficulty breathing Sulfa Drugs Allergy Severe Difficulty Verified 05/31/17 17:18 Breathing Diclofenac [From Voltaren] Allergy Hives Verified 05/31/17 17:18 Oxycodone Allergy Airway Verified 05/31/17 17:18 Obstruction Povidone Iodine Allergy See Comment Verified 05/31/17 17:18 [From Betadine] Levofloxacin [From Levaquin] AdvReac Severe Agitation Verified 05/31/17 17:18 Sumatriptan [From Imitrex] AdvReac Severe worsens Verified 05/31/17 17:18 migraine Fexofenadine [From Carina] AdvReac Headache Verified 05/31/17 17:18 Loratadine [From Claritin] AdvReac Headache Verified 05/31/17 17:18 Montelukast [From Singulair] AdvReac Headache Verified 05/31/17 17:18 NSAIDs AdvReac Headache Verified 05/31/17 17:18 Eggplant Allergy See Comment Uncoded 05/31/17 17:18 environmental Allergy Sneezing Uncoded 05/31/17 17:18 [place] Allergy Difficulty Uncoded 05/31/17 17:18 Breathing lion beans Allergy Unknown Uncoded 05/31/17 17:18 Reaction Details seafood AdvReac Severe Vomiting Uncoded 05/31/17 17:18 Home Medications: Home Medications Acetaminophen [Acetaminophen Extra Stren] 1,000 mg PO Q6H PRN 05/31/17 [History Confirmed 05/31/17] PMH/Surg Hx/FS Hx/Imm Hx Previously Healthy: No - pcos Cardiovascular History: Hypertension Respiratory History: Asthma GI/ History: Gastroesophageal Reflux Psychological History: Anxiety - Surgical History Surgical History: Yes Surgery Procedure, Year, and Place: wisdom teeth extraction 2004, left wrist repair 2005. 2 endoscopy x2, hysteroscopy 2012; D&C w/ biopsy x 2. tooth extraction-2016. breast surgery papiloma removal october 2015 - Family History Known Family History: Positive: Hypertension, Diabetes Negative: Blood Disorder - Social History Occupation: Disabled - learning job skills at [employer] Lives: With Family Alcohol Use: Rare Alcohol Amount: Vodka, wine coolers 2 x per year Substance Use Type: None Smoking Status (MU): Never Smoked Tobacco Household Exposure Type: Cigarettes - Immunization History Most Recent Influenza Vaccination: no Review of Systems Constitutional: Negative Skin: Negative Eyes: Negative ENT: Sore Throat, Nasal Discharge Respiratory: Cough Cardiovascular: Negative Gastrointestinal: Negative Genitourinary: Negative Motor: Negative Neurovascular: Negative Musculoskeletal: Negative Neurological: Negative Psychological: Negative Is Patient Immunocompromised?: No All Other Systems Reviewed And Are Negative: Yes Physical Exam Triage Information Reviewed: Yes Appearance: Well-Appearing, No Pain Distress, Obese Vital Signs: Initial Vital Signs Temp 97.6 F 05/31/17 17:04 Pulse 96 05/31/17 17:04 Resp 20 05/31/17 17:04 BP 133/78 05/31/17 17:04 Pulse Ox 98 05/31/17 17:04 Vital Signs Reviewed: Yes Eye Exam: Normal Eyes: Positive: Conjunctiva Clear ENT Exam: Normal ENT: Positive: Normal ENT inspection, Hearing grossly normal, Pharynx normal, Nasal congestion, Nasal drainage, TMs normal. Negative: Tonsillar swelling, Tonsillar exudate, Trismus, Muffled/hoarse voice Dental Exam: Normal Neck exam: Normal Neck: Positive: Supple, Nontender, No Lymphadenopathy Respiratory Exam: Normal Respiratory: Positive: Chest non-tender, Lungs clear, Normal breath sounds, No respiratory distress, No accessory muscle use Cardiovascular Exam: Normal Cardiovascular: Positive: RRR, No Murmur, Pulses Normal, Brisk Capillary Refill Musculoskeletal Exam: Normal Musculoskeletal: Positive: Strength Intact, ROM Intact, No Edema Neurological Exam: Normal Neurological: Positive: Alert, Muscle Tone Normal Psychological Exam: Normal Skin Exam: Normal UC Diagnostic Evaluation - Laboratory O2 Sat by Pulse Oximetry: 98 Respiratory Course/Dx - Course Course Of Treatment: continue albuterol, may use tessalon and robitussin for cough, follow with pcp this week prn - Differential Dx/Diagnosis Provider Diagnoses: Bronchospastic cough Discharge - Discharge Plan Condition: Stable Disposition: HOME Prescriptions: Benzonatate CAP* [Tessalon 100 MG CAP*] 100 mg PO TID PRN #30 cap PRN Reason: cough guaiFENesin LIQ* [Robitussin*] 10 ml PO Q4H PRN #240 ml PRN Reason: Cough Patient Education Materials: Acute Cough (ED), Viral Syndrome (ED) Referrals: Marco Young MD [Primary Care Provider] - If Needed
== END 2017-05-31 17:47 | disposition home or self-care (01) ==
LOC: UCCORT 16:43
DX: R05 Cough (principal); J98.01 Acute bronchospasm; I10 Essential (primary) hypertension; Z88.1 Allergy status to other antibiotic agents; Z88.5 Allergy status to narcotic agent; Z91.040 Latex allergy status; Z88.0 Allergy status to penicillin; Z88.2 Allergy status to sulfonamides; Z88.8 Allergy status to other drugs, medicaments and biological substances; Z88.6 Allergy status to analgesic agent; Z91.013 Allergy to seafood; Z91.018 Allergy to other foods
CPT/HCPCS: 87651; 99212; G0463

== ENCOUNTER 2017-07-21 11:01 | Emergency (ER) | payer OTHER ==
--- NOTE | 2017-07-21 11:46 | UC ---
Throat Pain/Nasal Axel HPI - HPI Summary HPI Summary: Pt presents with mother for sinus symptoms and cough. Pt tells me that about 1 week ago she developed sinus pain/pressure/congestion, PND, and a dry cough. She has felt a little more SOB than usual, but attributes this to her asthma in conjunction with her recent symptoms. She has not taken anything OTC because she is allergic to many things and does not have the funds to afford OTC medications. She denies fever, chills, chest pain, abdominal pain, N/V/D/C. 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 - History of Current Complaint Stated Complaint: COUGH SINUS/LEFT FOOT COMPLAINT Time Seen by Provider: 07/21/17 11:46 Hx Obtained From: Patient Hx Last Menstrual Period: MIRENA ?: No Onset/Duration: Gradual Onset Severity: Moderate Pain Intensity: 7 Pain Scale Used: 0-10 Numeric Cough: Nonproductive - Allergies/Home Medications Allergies/Adverse Reactions: Allergies Allergy/AdvReac Type Severity Reaction Status Date / Time Amoxicillin Allergy Severe Hives Verified 07/21/17 11:50 Codeine Allergy Severe breathing Verified 07/21/17 11:50 difficulty Latex Allergy Severe Rash Verified 07/21/17 11:50 Penicillins Allergy Severe hives, Verified 07/21/17 11:50 difficulty breathing Sulfa Drugs Allergy Severe Difficulty Verified 07/21/17 11:50 Breathing Diclofenac [From Voltaren] Allergy Hives Verified 07/21/17 11:50 Oxycodone Allergy Airway Verified 07/21/17 11:50 Obstruction Povidone Iodine Allergy See Comment Verified 07/21/17 11:50 [From Betadine] Levofloxacin [From Levaquin] AdvReac Severe Agitation Verified 07/21/17 11:50 Sumatriptan [From Imitrex] AdvReac Severe worsens Verified 07/21/17 11:50 migraine Fexofenadine [From Carina] AdvReac Headache Verified 07/21/17 11:50 Loratadine [From Claritin] AdvReac Headache Verified 07/21/17 11:50 Montelukast [From Singulair] AdvReac Headache Verified 07/21/17 11:50 NSAIDs AdvReac Headache Verified 07/21/17 11:50 Eggplant Allergy See Comment Uncoded 07/21/17 11:50 environmental Allergy Sneezing Uncoded 07/21/17 11:50 Hazelnut Allergy Difficulty Uncoded 07/21/17 11:50 Breathing lion beans Allergy Unknown Uncoded 07/21/17 11:50 Reaction Details seafood AdvReac Severe Vomiting Uncoded 07/21/17 11:50 PMH/Surg Hx/FS Hx/Imm Hx - Additional Past Medical History Additional PMH: Chronic pain. PCOS. Endocrine History: Diabetes Cardiovascular History: Hypertension Respiratory History: Asthma GI/ History: Gastroesophageal Reflux, Other - IBS Other GI/ History: IBS Psychological History: Anxiety, Depression - Surgical History Surgical History: Yes Surgery Procedure, Year, and Place: wisdom teeth extraction 2004, left wrist repair 2005. 2 endoscopy x2, hysteroscopy 2012; D&C w/ biopsy x 2. tooth extraction-2015. breast surgery papiloma removal october 2015 - Family History Known Family History: Positive: Hypertension, Diabetes Negative: Blood Disorder - Social History Alcohol Use: Rare Alcohol Amount: Vodka, wine coolers 2 x per year Substance Use Type: None Smoking Status (MU): Never Smoked Tobacco Household Exposure Type: Cigarettes - Immunization History Most Recent Influenza Vaccination: no Review of Systems Constitutional: Negative Skin: Negative Eyes: Negative ENT: Sore Throat, Ear Ache, Nasal Discharge, Sinus Congestion, Sinus Pain/ Tenderness Respiratory: Cough Cardiovascular: Negative Gastrointestinal: Negative Genitourinary: Negative Psychological: Negative All Other Systems Reviewed And Are Negative: Yes Physical Exam Triage Information Reviewed: Yes Appearance: Well-Appearing, Obese Vital Signs Reviewed: Yes Eyes: Positive: Conjunctiva Clear. Negative: Conjunctiva Inflamed, Discharge ENT: Positive: Hearing grossly normal, Pharynx normal, Nasal congestion, Nasal drainage, TM bulging - Left ear, TM red, Sinus tenderness. Negative: Pharyngeal erythema, Tonsillar swelling, Tonsillar exudate Neck: Positive: Supple, Nontender, No Lymphadenopathy Respiratory: Positive: Chest non-tender, No respiratory distress, No accessory muscle use, Wheezing - Throughout. Negative: Crackles, Rhonchi Cardiovascular: Positive: RRR, No Murmur, Pulses Normal Musculoskeletal: Positive: Strength Intact - Left foot, ROM Intact - Left foot, No Edema - Left foot, Other: - TTP over plantar left foot. Pain with dorsiflexion and plantar flexion left foot. Neurological: Positive: Alert Psychological: Positive: Age Appropriate Behavior Skin: Negative: rashes Throat Pain/Nasal Course/Dx - Course Course Of Treatment: Otitis media left ear. Sinusitis - Pt says that plain erythromycin is the only antibiotic that she can take without adverse effects and has had good relief in the past. Bronchitis - continue using your at home inhalers. Robitussin at bedtime and tessalon throughout the day. Plantar fasciitis - Referral to orthopedics - Differential Dx/Diagnosis Differential Diagnosis/HQI/PQRI: Influenza, Otitis Media, Pharyngitis, Sinusitis , Tonsillitis, URI Provider Diagnoses: Otitis media left ear. Sinusitis. Bronchitis. plantar fasciitis Discharge - Discharge Plan Condition: Stable Disposition: HOME Prescriptions: Benzonatate CAP* [Tessalon 100 MG CAP*] 100 mg PO TID PRN #30 cap PRN Reason: Cough Erythromycin TAB* 500 mg PO BID #40 tab Guaifenesin [Diabetic Tussin] 5 ml PO BEDTIME PRN #35 ml PRN Reason: Cough Patient Education Materials: Sinusitis (ED), Acute Bronchitis (ED) Referrals: Marco Young MD [Primary Care Provider] - Matt Chao MD [Medical Doctor] - If Needed Additional Instructions: If you develop a fever, SOB, chest pain, new or worsening symptoms - please call your PCP or go to the ED. Your blood pressure was high at todays visit. Please see your primary provider within 4 weeks for recheck and re-evaluation.
[2017-07-21 11:50] VITALS: BP 135/80
== END 2017-07-21 12:39 | disposition home or self-care (01) ==
LOC: UCCORT 11:01
DX: H66.92 Otitis media, unspecified, left ear (principal); J32.9 Chronic sinusitis, unspecified; J40 Bronchitis, not specified as acute or chronic; M72.2 Plantar fascial fibromatosis; E11.9 Type 2 diabetes mellitus without complications; I10 Essential (primary) hypertension; K21.9 Gastro-esophageal reflux disease without esophagitis; K58.9 Irritable bowel syndrome, unspecified; F41.9 Anxiety disorder, unspecified; F32.9 Major depressive disorder, single episode, unspecified; Z88.6 Allergy status to analgesic agent; Z88.1 Allergy status to other antibiotic agents; Z88.5 Allergy status to narcotic agent; Z88.0 Allergy status to penicillin; Z88.2 Allergy status to sulfonamides; Z91.040 Latex allergy status; Z77.22 Contact with and (suspected) exposure to environmental tobacco smoke (acute) (chronic)
CPT/HCPCS: 99212; G0463

== ENCOUNTER 2018-05-30 10:48 | Emergency (ER) | payer OTHER ==
--- OUTSIDE RECORDS SUMMARY | 2018-05-30 10:54 | XMS REPORT ---
:1985 External Reference #:[id number] Author Organization [facility] Address [address] [place] [address] [place] [address] Phone [phone] Care Team Providers Name Role Phone Marco Young MD Primary Care Physician Unavailable Payers Type Date Identification Numbers Payment Provider Subscriber Commercial Policy Number: [id number] [employer] Vannesa Venegas PayID: [id number] [address] [place] [id number] Problems Date Description Provider Status Onset: 12/14/2017 Radial styloid tenosynovitis Matt Rodríguez MD Active Onset: 12/14/2017 Ganglion cyst of left wrist Matt Rodríguez MD Active Onset: 12/14/2017 Bilateral carpal tunnel syndrome Matt Rodríguez MD Active Family History Date Family Member(s) Problem(s) Comments General Diabetes General Heart Disease General Cancer Siblings None Social History Type Date Description Comments Lives With Mother And Father Occupation Unemployed Cigarette Use Never Smoked Cigarettes ETOH Use Drinks Alcoholic Beverages Rarely Smoking Patient has never smoked Recreational Drug Use Denies Drug Use Daily Caffeine Ice Tea 4-6 cups a week Exercise Type/Frequency Exercises regularly Allergies, Adverse Reactions, Alerts Date Description Reaction Status Severity Comments 06/02/2013 Penicillin active 06/02/2013 Codeine active 06/02/2013 Amoxicillin active 06/02/2013 Sulfa Based active 06/02/2013 Voltarin active 08/28/2013 Claritin active 08/28/2013 Carina active 08/28/2013 Fish-derived Products active 08/28/2013 Latex active 08/28/2013 Denia Nuts active 11/17/2013 Imitrex active 11/17/2013 Singulair active 11/17/2013 Oxycodone active 05/24/2014 Levaquin active 07/21/2017 Coy Beans active 07/21/2017 Eggplant active 09/29/2017 Oxycontin active 05/18/2018 Ibuprofen active ulcers in GI tract- pt avoids. No NSAIDS Medications Medication Date Status Form Strength Qnty SIG Indications Ordering Provider Knee Brace 08/30 Active 1unit hinged or S80.01xA s knee ros Mayo MD whichever pt feels most comfortabl e in to be used as needed Metformin Active Tablets 500mg 60tab 2 tabs by Unknown /0000 s mouth twice a day Calcium +D Active 600mg/400 2 tablet Unknown /0000 mg po daily Cetirizine HCL Active Chewtabs 10mg every day Unknown /0000 by mouth Benadryl Allergy Active 25mg 2 po as Unknown /0000 needed Ventolin HFA Active Aerosol 108(90Bas 1unit 2 puffs by Unknown /0000 e) s mouth four mcg/Act times a day as needed Albuterol Sulfate Active Nebulizer (2.5mg/3M 100un 1 vial via Unknown /0000 L) 0.083% its nebulizer 4 times daily as needed Lisinopril-Hydroc Active Tablets 20-12.5mg 1 by mouth Unknown hlorothiazide /0000 every day Dicyclomine HCL Active Capsules 10mg 40cap 1 cap by Unknown /0000 s mouth twice a day as needed Clobetasol Active apply Unknown Propionate E /0000 twice daily prn Tums Active 2-3 tablet Unknown /0000 as need Flonase Allergy Active Suspension 50mcg/Act 2 puffs Unknown Relief /0000 both sides once a day as needed Tylenol Extra Active Tablets 500mg 2 by mouth Unknown Strength /0000 4 times a day as needed Gabapentin Active Tablets 1 and 1/2 Unknown /0000 tabs by mouth twice a daily. Spironolactone Active Tablets 25mg 1 by mouth Unknown /0000 every day Dulera Active Aerosol inhale two Unknown /0000 puffs by mouth twice a day Omeprazole Active Capsules DR 40mg 1 by mouth Unknown /0000 every day Tizanidine HCL Active Tablets 4mg take 1 Unknown /0000 tablet by mouth every 8 hours as needed Vitamin Active Tablets 1 by mouth Unknown /0000 every day Ibuprofen 04/21 Hx Tablets 600mg 45tab one by M76.821 s mouth Jeremie, - three M.D. 05/17 times a day [place] 09/29 Hx Tablets 5-325mg 14tab 1 by mouth M76.822 s twice Jeremie, - daily as M.DRama 11/29 needed for pain Lidocaine 12/21 Hx Patches 5% 30uni apply to ts argelia Carreno, - e area for M.DRama 10/24 up to hours a day [place] 06/06 Hx Tablets 5-325mg 60tab 1-2 po s q4-6h prn Danya - pain Bobbi richard 08/28 Lisinopril Hx 40mg One daily Unknown /0000 - 05/23 Prevacid Hx 30mg Two times Unknown /0000 daily - 06/27 Provera Hx Unknown /0000 - 10/24 Diazepam Hx 5mg One by Unknown /0000 mouth - every 6 08/29 hours prn Hydrocodone/Aceta Hx 10-325 1 tab by Unknown minophen /0000 mouth - every 4-6 07/20 hours prn back pain Zyrtec Allergy Hx Tablets 10mg Unknown /0000 - 06/27 Percocet Hx Tablets 5-325mg 80tab take 1-2 Unknown /0000 s tabs by - mouth q4-6 11/28 hours needed pain Symbicort Hx Aerosol 160-4.5mc 1unit 2 puffs by Unknown /0000 g/Act s mouth - twice a Levocetirizine Hx Tablets 5mg 1 by mouth Unknown Dihydrochloride /0000 every day - 09/28 Amitriptyline HCL Hx Tablets 10mg 1 tablet Unknown /0000 every - night at 08/29 bed Loperamide HCL Hx Capsules 2mg 30cap q6hr as Unknown /0000 s needed - 07/20 Kaopectate 00/ Hx Suspension 262mg/15M every 1/2 Unknown /0000 L to hr as - needed 07/19 Fluticasone Hx Suspension 50mcg/Act 16gm 1 spray Unknown Propionate /0000 each - nostril 10/24 daily needed Ethyl Chloride 00/00 Hx spray for Unknown /0000 TMJ - 10/24 Luz Maria-Hydrolac 12% Hx Cream apply Unknown /0000 twice - daily to 09/28 areas Lansoprazole Hx Capsules DR 30mg 30cap 1 cap po Unknown /0000 s bid - 09/28 Medroxyprogestero Hx Tablets 10mg 1 by mouth Unknown ne Acetate /0000 every day - (on for 21 07/19 days for 7 days ) morning Evening Prime 00 Hx 1000mg 3 cap po Unknown Jane Oil /0000 daily - 09/28 Vicks Sinex 12 00 Hx 2-3 sprays Unknown Hour Decongestant /0000 every Ultra Fine Mist - 10-12 hrs 10/24 Diego Nasal 0000 Hx 2 Unknown Inhaler /0000 inhalation - s every 2 10/24 hrs needed Simethicone Hx Chewtabs 125mg 120un one by Unknown /0000 its mouth - three 07/20 times day as needed Evening Banks 0000 Hx Capsules 1000mg 1 by mouth Unknown Oil /0000 every day - 09/28 Nasacort Aq 00/ Hx Aerosol 55mcg/Act 1 spray in Unknown /0000 each - nostril 08/29 twice day Baclofen Hx Tablets 10mg 1 po bid Unknown /0000 - 05/17 Lyrica 0000 Hx Capsules 50mg 1 by mouth Unknown /0000 three - times a Cymbalta [address] 30mg 60cap 1 by mouth Unknown /0000 Part s twice a - day 12/31 Vitamin D 00/00 Hx Capsules [id number] take one Unknown (Ergocalciferol) /0000 capsule by - mouth once 09/28 Hydrocodone-Aceta 0000 Hx Tablets 10-325mg 1 tab by Unknown minophen /0000 mouth 6 - hours as 05/17 needed- 5 tabs left. Medications Administered in Office Medication Date Status Form Strength Qnty SIG Indications Ordering Provider Depomedrol Administered Injection Vannesa 80MG 014 JENAE Huber Depomedrol Administered Injection Krish 80MG 014 Bobbi Carreno Celestone 3 mg Administered Injection Tammy and 3mg 014 JENAE Fernández Vital Signs Date Vital Result Comment 05/18/2018 Height 64 inches 5'4" Heart Rate 95 /min BP Systolic 100 mmHg left lower arm BP Diastolic 80 mmHg left lower arm Respiratory Rate 16 /min Pain Level 5 O2 % BldC Oximetry 99 % 04/21/2018 Height 64 inches 5'4" Weight 420.00 lb Heart Rate 96 /min Respiratory Rate 20 /min Body Temperature 96.8 F Pain Level 7 BMI (Body Mass Index) 72.1 kg/m2 12/28/2017 Height 64 inches 5'4" Weight 413.00 lb BP Systolic Sitting 114 mmHg BP Diastolic Sitting 68 mmHg Respiratory Rate 17 /min Pain Level 4 BMI (Body Mass Index) 70.9 kg/m2 12/14/2017 Height 64 inches 5'4" Weight 413.00 lb Heart Rate 68 /min BP Systolic Sitting 116 mmHg BP Diastolic Sitting 68 mmHg Respiratory Rate 16 /min Pain Level 7 BMI (Body Mass Index) 70.9 kg/m2 12/01/2017 Height 64 inches 5'4" Weight 413.00 lb BP Systolic Sitting 132 mmHg BP Diastolic Sitting 68 mmHg Respiratory Rate 16 /min Pain Level 4 BMI (Body Mass Index) 70.9 kg/m2 09/29/2017 Height 64 inches 5'4" Heart Rate 84 /min BP Systolic 104 mmHg BP Diastolic 84 mmHg Respiratory Rate 16 /min Pain Level 6 07/21/2017 Height 64 inches 5'4" Weight 413.00 lb Heart Rate 108 /min BP Systolic Sitting 122 mmHg BP Diastolic Sitting 76 mmHg Respiratory Rate 16 /min Pain Level 10 O2 % BldC Oximetry 98 % Ra BMI (Body Mass Index) 70.9 kg/m2 10/04/2015 Height 64 inches 5'4" Heart Rate 122 /min BP Systolic Sitting 110 mmHg LA reg cuff BP Diastolic Sitting 60 mmHg LA reg cuff BP Systolic Standing 110 mmHg LA reg cuff BP Diastolic Standing 76 mmHg LA reg cuff Respiratory Rate 18 /min 09/13/2015 Height 64 inches 5'4" Weight 415.00 lb Heart Rate 92 /min BP Systolic Sitting 126 mmHg BP Diastolic Sitting 84 mmHg BMI (Body Mass Index) 71.2 kg/m2 08/30/2015 Height 64 inches 5'4" Weight 415.00 lb Heart Rate 88 /min BP Systolic Sitting 130 mmHg BP Diastolic Sitting 80 mmHg BMI (Body Mass Index) 71.2 kg/m2 11/13/2014 Height 64 inches 5'4" Weight 401.00 lb Pain Level 10 BMI (Body Mass Index) 68.8 kg/m2 10/25/2014 Height 64 inches 5'4" Weight 401.00 lb Pain Level 9 BMI (Body Mass Index) 68.8 kg/m2 07/17/2014 Height 64 inches 5'4" Weight 401.00 lb Heart Rate 88 /min BMI (Body Mass Index) 68.8 kg/m2 06/28/2014 Height 64.25 inches 5'4.25" Weight 401.00 lb BP Systolic 130 mmHg ra lg cuff BP Diastolic 92 mmHg ra lg cuff BP Systolic Sitting 126 mmHg la lg cuff BP Diastolic Sitting 90 mmHg la lg cuff BP Systolic Standing 124 mmHg la lg cuff BP Diastolic Standing 86 mmHg la lg cuff BMI (Body Mass Index) 68.3 kg/m2 05/24/2014 Height 64 inches 5'4" Weight 411.00 lb Body Temperature 98.1 F Pain Level 7 BMI (Body Mass Index) 70.5 kg/m2 03/08/2014 Height 64 inches 5'4" Weight 411.00 lb Pain Level 4 BMI (Body Mass Index) 70.5 kg/m2 02/28/2014 Height 64 inches 5'4" Weight 411.00 lb Heart Rate 88 /min BMI (Body Mass Index) 70.5 kg/m2 02/20/2014 Height 64 inches 5'4" Weight 388.00 lb Pain Level 10 BMI (Body Mass Index) 66.6 kg/m2 02/08/2014 Height 64 inches 5'4" Weight 388.00 lb Heart Rate 94 /min BP Systolic 124 mmHg BP Diastolic 83 mmHg BMI (Body Mass Index) 66.6 kg/m2 02/05/2014 Height 64.5 inches 5'4.50" Weight 388.00 lb Body Temperature 98.3 F BMI (Body Mass Index) 65.6 kg/m2 01/30/2014 Height 64.5 inches 5'4.50" Weight 388.00 lb Heart Rate 112 /min BMI (Body Mass Index) 65.6 kg/m2 01/10/2014 Height 64.5 inches 5'4.50" Weight 388.00 lb Heart Rate 100 /min BMI (Body Mass Index) 65.6 kg/m2 12/21/2013 Height 64.5 inches 5'4.50" Weight 388.00 lb BMI (Body Mass Index) 65.6 kg/m2 12/13/2013 Height 64.5 inches 5'4.50" Weight 388.00 lb Heart Rate 120 /min BMI (Body Mass Index) 65.6 kg/m2 11/17/2013 Height 64.5 inches 5'4.50" Weight 388.00 lb Heart Rate 108 /min BMI (Body Mass Index) 65.6 kg/m2 09/14/2013 Heart Rate 89 /min BP Systolic 139 mmHg BP Diastolic 90 mmHg 06/02/2013 Height 64 inches 5'4" Weight 387.00 lb BMI (Body Mass Index) 66.4 kg/m2 Results Description No Information Procedures Date CPT Code Description Status 12/14/2017 56100 Rad Exam; Fingers Completed 12/14/2017 26547 Rad Exam; Fingers Completed 12/14/2017 76798 Rad Exam; Wrist, Comp, Min 3 Views Completed 10/04/2015 69213 EKG Tracing & Interpretation Completed 06/28/2014 46972 EKG Tracing & Interpretation Completed 05/24/2014 34529 Inject/Drain Joint/Bursa Major W/O US Completed 02/20/2014 57096 Walking Cast Completed 02/08/2014 18039 Short Leg Cast Completed 01/10/2014 45085 Rad Exam; Foot Comp Completed 12/21/2013 31022 Inject/Drain Joint/Bursa Major W/O US Completed 08/28/2013 28855 Inject Tendon Sheath Or Ligament Aponeurosis Eg Plantar Completed Fascia 05/04/2013 38885 Treadmill Interp/Report Only Completed 05/04/2013 28623 Stress Test Supervsn W/Out I/R Completed Encounters Type Date Location Provider CPT E/M Dx Office Visit 04/21/2018 [facility] Matt Chao, 70889 M76.821 10:30a Of [facility]othy Office Visit 12/28/2017 [facility] [place] Matt Rod[place] [address] G56.03 11:00a Of [facility] AT [place] M67.432 M65.4 Office Visit 12/01/2017 1:00p [facility] Of Matt Chao 32511 M76.822 [facility] AT [facility].D. Office Visit 09/29/2017 2:15p [facility] Of Matt Chao, 71980 M76.822 Le[facility] Agent AT [facility].D. Office Visit 07/21/2017 1:15p [facility] Matt Chao 19957 M76.822 Leasing Agent AT [facility].D. Office Visit 10/04/2015 3:30p [facility] Jose Enrique Dela Cruz, 91306 R00.2 [facility] [address] M.Andrey I10 Office Visit 09/13/2015 2:30p [facility] [place] [address] S80.01xA [facility] [address] AT [place] S80.01xD Office Visit 08/30/2015 12:30p [facility] [place] [address] S80.01xA [facility] AT [place] M17.11 Office Visit 11/13/2014 2:30p [facility] Of Matt Chao 19272 845.00 C.MAgustin Martines 719.47 844.9 Office Visit 10/25/2014 2:15p [facility] Of Krish Carreno M.D. 34318 726.10 C.M.ARama Office Visit 07/17/2014 3:00p [facility] Matt Chao 20076 719.47 C.MAgustin Martines Office Visit 06/28/2014 2:00p [facility] Jose Enrique Dela Cruz, 07147 785.1 [facility] [address] Erasto.Andrey 401.1 785.2 Office Visit 05/24/2014 2:00p [facility] Of Vannesa Huber 85446 726.10 C.M.ARama RPA-C 718.81 726.19 Office Visit 03/08/2014 3:15p [facility] Matt Chao M.D. 67157 719.47 Of C.M.ARama Office Visit 02/28/2014 9:45a [facility] Sary 34315 727.04 Of C.Deb Loredo M.D. Office Visit 02/20/2014 3:00p [facility] Matt Chao M.D. 17306 719.47 Of C.[facility]. Office Visit 02/08/2014 2:30p [facility] Matt Chao M.D. 97445 719.47 Of [facility]. Office Visit 02/05/2014 2:30p [facility] Jayro Onofre 04987 719.47 Of C.M.ARadha Morales Office Visit 01/30/2014 3:30p [facility] Matt Chao M.D. 41836 719.47 Of [facility].M.[facility]. Office Visit 01/10/2014 2:45p [facility] Paradise Avelar M.D. 51206 825.23 Of C.M.A. 825.23 Office Visit 12/21/2013 2:30p [facility] Krish Carreno M.D. 79867 726.10 C.M.Brittny 726.2 Office Visit 12/13/2013 2:30p [facility] [place] Avelar M.D. 91916 825.23 C.M.A. Office Visit 11/27/2013 2:45p [facility] [place] Avelar M.D. 85230 845.00 C.M.A. Office Visit 11/17/2013 11:15a [facility] [place] Avelar M.D. 85131 845.00 C.M.A. 719.47 Office Visit 09/14/2013 8:45a [facility] Of Krish Carreno M.D. 03915 726.10 C.M.A. Office Visit 08/28/2013 2:30p [facility] Of Tammy Fernández 15969 726.4 C.MAgustin GRAVES-C 727.04 Office Visit 06/26/2013 10:15a [facility] Sary Loredo 55723 719.43 Of Pradeep Martines Office Visit 06/02/2013 11:00a [facility] Sary Loredo, 76249 726.4 Of Pradeep Martines Plan of Care Future Appointment(s):06/08/2018 10:45 am - Matt Chao M.D. at [facility]05/18/2018 - Matt Chao M.D.M76.821 Posterior tibial tendinitis, right legFollow up:4-5 weeks
[2018-05-30 13:28] VITALS: BP 102/66
--- NOTE | 2018-05-30 13:37 | ED ---
Throat Pain/Nasal Congestion - HPI Summary HPI Summary: URI sx x [address] Nausea from PND - no vomiting. Fever and chills intermittently. [place] - well controlled - has only needed albuteorl a few times - brings relief. - History of Current Complaint Chief Complaint: UCRespiratory Time Seen by Provider: 05/30/18 12:44 Hx Obtained From: Patient - Allergies/Home Medications Allergies/Adverse Reactions: Allergies Allergy/AdvReac Type Severity Reaction Status Date / Time amoxicillin Allergy Hives Verified 05/30/18 11:22 codeine Allergy Difficulty Verified 05/30/18 11:22 Breathing diclofenac [From Voltaren] Allergy Hives Verified 05/30/18 11:22 fexofenadine [From Carina] Allergy Headache Verified 05/30/18 11:22 latex Allergy Rash Verified 05/30/18 11:22 levofloxacin [From Levaquin] Allergy Agitation Verified 05/30/18 11:22 loratadine [From Claritin] Allergy Headache Verified 05/30/18 11:22 NSAIDS (Non-Steroidal Allergy Headache Verified 05/30/18 11:22 Anti-Inflamma oxycodone Allergy Airway Verified 05/30/18 11:22 Obstruction Penicillins Allergy Hives/Diff. Verified 05/30/18 11:22 Breathing/I tching povidone-iodine Allergy See Comment Verified 05/30/18 11:22 [From Betadine] soap [From Betadine] Allergy See Comment Verified 05/30/18 11:22 Sulfa (Sulfonamide Allergy Difficulty Verified 05/30/18 11:22 Antibiotics) Breathing sumatriptan [From Imitrex] Allergy See Comment Verified 05/30/18 11:22 Eggplant Allergy See Comment Uncoded 05/30/18 11:22 environmental Allergy Sneezing Uncoded 05/30/18 11:22 [place] Allergy Difficulty Uncoded 05/30/18 11:22 Breathing lion beans Allergy Unknown Uncoded 05/30/18 11:22 Reaction Details seafood AdvReac Severe Vomiting Uncoded 05/30/18 11:22 Home Medications: Home Medications Mometasone/Formoter 200/5 MDI* [Dulera 200/5 MDI*] 2 puff INH BID 05/30/18 [ History Confirmed 05/30/18] Omeprazole 20 mg PO 05/30/18 [History] Pnv No.95/Ferrous Fum/Folic AC [ Vitamin & Minera 28-0.8 mg] 1 tab PO [History] PMH/Surg Hx/FS Hx/Imm Hx Previously Healthy: Yes Endocrine/Hematology History: Reports: Hx Diabetes Denies: Hx Thyroid Disease Cardiovascular History: Reports: Hx Angina, Hx Hypertension Denies: Hx Pacemaker/ICD Respiratory History: Reports: Hx Asthma, Hx Seasonal Allergies, Hx Sleep Apnea Denies: Hx Chronic Obstructive Pulmonary Disease (COPD) GI History: Reports: Hx Gastroesophageal Reflux Disease, Hx Irritable Bowel, Hx Ulcer - duodenum History: Reports: Hx Kidney Infection Musculoskeletal History: Reports: Hx Arthritis - Knees; ankles, Hx Back Problems , Hx Fibromyalgia, Other Musculoskeletal History - Chronic Neck Pain Sensory History: Reports: Hx Contacts or Glasses Denies: Hx Hearing Aid Opthamlomology History: Reports: Hx Contacts or Glasses Neurological History: Reports: Hx Migraine Psychiatric History: Denies: Hx Panic Disorder - Cancer History Cancer Type, Location and Year: testing for endometrial cancer 07/26/14 - Surgical History Surgery Procedure, Year, and Place: wisdom teeth extraction 2004, left wrist repair 2005. 2 endoscopy x2, hysteroscopy 2012; D&C w/ biopsy x 2. tooth extraction-2015. breast surgery papiloma removal october 2015 Infectious Disease History: No Infectious Disease History: Denies: Hx Clostridium Difficile, Hx Hepatitis, Hx Human Immunodeficiency Virus (HIV), Hx of Known/Suspected MRSA, Hx Shingles, Hx Tuberculosis, Hx Known/ Suspected VRE, Hx Known/Suspected VRSA, History Other Infectious Disease, Traveled Outside the [place] in Last 30 Days - Family History Known Family History: Positive: Hypertension, Diabetes Negative: Blood Disorder - Social History Lives: With Family Alcohol Use: Rare Alcohol Amount: Vodka, wine coolers 2 x per year Hx Substance Use: No Substance Use Type: Reports: None Hx Tobacco Use: No - 2nd hand smoke exposure Smoking Status (MU): Never Smoked Tobacco Review of Systems Positive: Fatigue. Negative: Fever, Chills Eyes: Negative ENT: Other - PND Positive: Sore Throat, Ear Ache, Nasal Discharge Cardiovascular: Negative Negative: Chest Pain Positive: Cough. Negative: Shortness Of Breath Positive: Nausea. Negative: Abdominal Pain, Vomiting, Diarrhea Positive: no symptoms reported Musculoskeletal: Negative Negative: Arthralgia, Myalgia Skin: Negative Negative: Rash Positive: Headache - sinus pressure Psychological: Normal All Other Systems Reviewed And Are Negative: Yes Physical Exam Triage Information Reviewed: Yes Vital Signs On Initial Exam: Initial Vitals Temp Pulse Resp BP Pulse Ox 97.2 F 94 18 125/71 99 05/30/18 11:08 05/30/18 11:08 05/30/18 11:08 05/30/18 11:08 05/30/18 11:08 Vital Signs Reviewed: Yes Appearance: Positive: No Pain Distress, Ill-Appearing - mildly ill appearing, Obese Skin: Positive: Warm, Skin Color Reflects Adequate Perfusion, Dry - no rash Head/Face: Positive: Normal Head/Face Inspection Eyes: Positive: Normal, EOMI, ADI, Conjunctiva Clear. Negative: Conjunctiva Inflammed, Discharge ENT: Positive: Hearing grossly normal, Pharyngeal erythema - cobblestoning, Nasal congestion, TMs normal - erythematous turbinates, Sinus tenderness, Uvula midline. Negative: Tonsillar swelling, Tonsillar exudate, Trismus, Muffled voice, Hoarse voice, Dental tenderness Neck: Positive: Supple, Nontender, No Lymphadenopathy Respiratory/Lung Sounds: Positive: Clear to Auscultation - distant breath sounds - difficult to hear detail s/t body habitus, Breath Sounds Present Cardiovascular: Positive: RRR, Other - distant heart sounds - difficult to hear detail s/t body habitus Abdomen Description: Positive: Nontender, Soft Musculoskeletal: Positive: Normal, Strength/ROM Intact Neurological: Positive: Normal, Sensory/Motor Intact, Alert, Oriented to Person Place, Time, CN Intact II-III Psychiatric: Positive: Normal Diagnostics - Vital Signs Vital Signs Temp Pulse Resp BP Pulse Ox 05/30/18 13:25 97.0 F 95 16 102/66 98 05/30/18 11:08 97.2 F 94 18 125/71 99 - Laboratory Lab Results: Lab Results 05/30/18 05/30/18 Range/Units 13:00 13:02 Influenza A (Rapid) Negative (Negative) Influenza B (Rapid) Negative (Negative) Group A Strep Rapid Negative (Negative) Lab Statement: Any lab studies that have been ordered have been reviewed, and results considered in the medical decision making process. EENT Course/Dx - Diagnoses Provider Diagnoses: Sinus infection Discharge - Sign-Out/Discharge Documenting (check all that apply): Patient Departure All imaging exams completed and their final reports reviewed: No - Discharge Plan Condition: Stable Disposition: HOME Prescriptions: DOXYcycline CAP(*) [DOXYcycline 100MG CAP(*)] 100 mg PO BID #20 cap Patient Education Materials: Sinusitis (ED), Upper Respiratory Infection (ED) Forms: *Work Release Referrals: Marco Young MD [Primary Care Provider] - Additional Instructions: You appear to have a viral infection but given the prolonged course and 2nd hand smoke exposure, an antibiotic will be prescribed to treat a 2ndry bacterial sinus infection. Complete antibiotics and follow-up with PCP this week for recheck of symptoms. If worse, go to the ED. You may also try the following for relief: Nasal wash (netti pot or saline spray) & salt water throat gargles 2 x day Drink you body weight in ounces of water every day Sleep 8+ hours per night Avoid Dairy and sugar Hot herbal/decaf tea with lemon & honey Chicken broth (preferably organic, free range chicken) Humidifier in house, but especially near bed at night Keep home temperature at 68F or less to reduce dryness Use cough drops/throat lozenges Try a facial steam with or without eucalyptus essential oil or Diego's Vapor rub for congestion Avoid smoke, candles, perfumes, colognes, scented soaps/detergents , air fresheners and cleaning chemicals as these can cause airway irritation and trigger coughing Start Vitamin D3 5000iu and Vitamin C 1000mg every day x winter months OR try Airborne or Emergen-C for immune support Start probiotics in between antibiotics (ie. Yogurt and/or capsules of L. acidophilus, L. bifidus, L. casei, etc) - Billing Disposition and Condition Condition: STABLE Disposition: Home
--- NOTE | 2018-05-31 08:42 | UC ---
Discharge - Sign-Out/Discharge Documenting (check all that apply): Post-Discharge Follow Up All imaging exams completed and their final reports reviewed: No Studies - Discharge Plan Condition: Stable Disposition: HOME Prescriptions: DOXYcycline CAP(*) [DOXYcycline 100MG CAP(*)] 100 mg PO BID #20 cap Patient Education Materials: Sinusitis (ED), Upper Respiratory Infection (ED) Forms: *Work Release Referrals: Marco Young MD [Primary Care Provider] - Additional Instructions: You appear to have a viral infection but given the prolonged course and 2nd hand smoke exposure, an antibiotic will be prescribed to treat a 2ndry bacterial sinus infection. Complete antibiotics and follow-up with PCP this week for recheck of symptoms. If worse, go to the ED. You may also try the following for relief: Nasal wash (netti pot or saline spray) & salt water throat gargles 2 x day Drink you body weight in ounces of water every day Sleep 8+ hours per night Avoid Dairy and sugar Hot herbal/decaf tea with lemon & honey Chicken broth (preferably organic, free range chicken) Humidifier in house, but especially near bed at night Keep home temperature at 68F or less to reduce dryness Use cough drops/throat lozenges Try a facial steam with or without eucalyptus essential oil or Diego's Vapor rub for congestion Avoid smoke, candles, perfumes, colognes, scented soaps/detergents , air fresheners and cleaning chemicals as these can cause airway irritation and trigger coughing Start Vitamin D3 5000iu and Vitamin C 1000mg every day x winter months OR try Airborne or Emergen-C for immune support Start probiotics in between antibiotics (ie. Yogurt and/or capsules of L. acidophilus, L. bifidus, L. casei, etc) - Billing Disposition and Condition Condition: STABLE Disposition: Home
== END 2018-05-30 13:50 | disposition home or self-care (01) ==
LOC: UCEAST 10:48
DX: J32.9 Chronic sinusitis, unspecified (principal); J06.9 Acute upper respiratory infection, unspecified; K21.9 Gastro-esophageal reflux disease without esophagitis; M17.0 Bilateral primary osteoarthritis of knee; M54.2 Cervicalgia; M79.7 Fibromyalgia; J45.909 Unspecified asthma, uncomplicated; Z88.1 Allergy status to other antibiotic agents; Z88.0 Allergy status to penicillin; Z88.8 Allergy status to other drugs, medicaments and biological substances; Z88.5 Allergy status to narcotic agent; Z91.013 Allergy to seafood; Z88.6 Allergy status to analgesic agent; Z91.040 Latex allergy status; Z91.018 Allergy to other foods; Z77.22 Contact with and (suspected) exposure to environmental tobacco smoke (acute) (chronic)
CPT/HCPCS: 87651; 99212; G0463